=== PATIENT | female | born 1995 | race Two or more races ===

== ENCOUNTER 2017-11-12 20:56 | Emergency (ER) | payer MEDICAID ==
[~2017-11-12] VITALS: Ht 162.6 cm; Wt 52.2 kg
--- NOTE | 2017-11-12 21:18 | NUR ---
Patient ambulated to ER with steady gait, reports flu like symptoms: headache, coughing, on and off fever, body aches, congestion x 2 weeks.
--- NOTE | 2017-11-12 21:19 | NUR ---
Dr. Hirsch at bedside for MSE.
[2017-11-12] MEDS ORDERED: IBUPROFEN 600 MG TABLET PO ONE (21:30)
[2017-11-12] MEDS ORDERED: ACETAMINOPHEN ES 500 MG TABLET PO ONE (21:30)
[2017-11-12] MEDS ORDERED: IBUPROFEN 600 MG TABLET ONE (21:31)
[2017-11-12] MEDS ORDERED: ACETAMINOPHEN ES 500 MG TABLET ONE (21:31)
--- NOTE | 2017-11-12 22:23 | NUR ---
Patient discharged to home in stable conditon. Written and verbal after care instructions given. Patient verbalizes understanding of instructions. Patient ambulated out of ER with steady gait, no acute signs of distress, VSS, all belongings taken.
[2017-11-12 22:33] VITALS: BP 108/65
== END 2017-11-12 22:25 | disposition home or self-care (01) ==
LOC: ER 20:58
DX: B34.9 Viral infection, unspecified (principal)
CPT/HCPCS: 36415; 86403; 99283; A4663; A9150